=== PATIENT | male | born 1990 | race Caucasian/White ===

== ENCOUNTER → 2020-12-07 16:40 | Outpatient (CLI) | payer OTHER, SELFPAY ==
[2020-12-07] MEDS: COVID-19 VACC #1, MRNA(MOD) 100 MCG/0.5 ML VIAL IM (16:46)
== END ==
PROVIDERS: Visit Provider Internal Medicine
DX: Z23 Encounter for immunization (principal)
CPT/HCPCS: 0011A; 91301

== ENCOUNTER → 2021-01-05 16:18 | Outpatient (CLI) | payer OTHER, SELFPAY ==
[2021-01-05] MEDS: COVID-19 VACC #2, MRNA(MOD) 100 MCG/0.5 ML VIAL IM (16:25)
== END ==
PROVIDERS: Visit Provider Internal Medicine
DX: Z23 Encounter for immunization (principal)
CPT/HCPCS: 0012A; 91301

== ENCOUNTER → 2021-05-16 11:17 | Outpatient (CLI) | payer OTHER, SELFPAY ==
[2021-05-16 14:54] LABS: COVID19 -Nasal RAPID Negative (Negative)
== END ==
PROVIDERS: Referring Provider Physician Assistant; Visit Provider Physician Assistant
DX: Z20.822 Contact with and (suspected) exposure to COVID-19 (principal); J02.9 Acute pharyngitis, unspecified
CPT/HCPCS: 87635

== ENCOUNTER → 2021-10-06 10:55 | Outpatient (CLI) | payer OTHER, SELFPAY ==
[2021-10-06 11:34] LABS: COVID19 -Nasal RAPID POSITIVE (Negative)
== END ==
PROVIDERS: Referring Provider Physician Assistant; Visit Provider Physician Assistant
DX: U07.1 COVID-19 (principal); Z20.822 Contact with and (suspected) exposure to COVID-19
CPT/HCPCS: 87635

== ENCOUNTER 2023-04-07 13:05 | Emergency (ER) | payer OTHER, SELFPAY ==
[2023-04-07 13:10] VITALS: BP 127/68; PULSE 65; RESP 16; TEMP 36.9; O2SAT 99; BMI 26.2
[2023-04-07 15:57] VITALS: BP 114/73; PULSE 62; RESP 18; O2SAT 99
--- NOTE | 2023-04-07 16:00 | PC.NURSE ---
Pt unsure of when last tetanus vaccine was.
[2023-04-07] MEDS: TET,DIPH,PERTUSS(ACELL),VAC/PF 0.5 ML SYRINGE IM (16:08)
--- NOTE | 2023-04-07 17:07 | ED_ITS ---
HPI - Wound/Laceration General Chief Complaint: Wound/Laceration Stated Complaint: Hand inj Time Seen by Provider: 04/07/23 16:20 Source: patient Mode of arrival: Ambulatory History of Present Illness HPI narrative: Patient 33-year-old male who presents with left thumb laceration. He was at work cutting when he sliced his thumb. Wheezing is now controlled his tetanus has been up-to-date he is no numbness or tingling. Related Data Home Medications Medication Instructions Recorded Confirmed Lexapro PO 10/06/21 10/06/21 Allergies Allergy/AdvReac Type Severity Reaction Status Date / Time No Known Drug Allergies Allergy Unverified 10/06/21 10:58 Review of Systems Review of Systems ROS Unobtainable: All systems reviewed & are unremarkable except as noted in HPI and below Patient History Social History Smoking Status: Current some day smoker Smoking Status: Current some day smoker tobacco type: cigarettes alcohol intake frequency: 0-2 drinks per day Substance Use Type: does not use Exam Initial Vital Signs Initial Vital Signs: Vital Signs Temperature 98.5 F 04/07/23 13:10 Pulse Rate 65 04/07/23 13:10 Respiratory Rate 16 04/07/23 13:10 Blood Pressure 127/68 04/07/23 13:10 Pulse Oximetry 99 04/07/23 13:10 Oxygen Delivery Method Room Air 04/07/23 13:10 GENERAL: Well-appearing 33-year-old male CARDIOVASCULAR: peripheral pulses in tact, cap refill <2 sec RESPIRATORY: No respiratory distress, speaks in full sentences without difficulty EXTREMITIES: Normal range of motion, no clubbing or edema. Neurovascularly intact NEUROLOGICAL: Cranial nerves II through XII grossly intact. Normal gait and speech. SKIN: Left thumb flap like laceration bleeding controlled neurovascularly intact. Band-Aid placed Course Orders Ordered: Discontinued Medications Diphtheria/Tetanus/Acell Pertussis (Tet,Diph,Pertuss(Acell),Vac/Pf 0.5 Ml Syringe) 0.5 ml IM .ONCE ONE Stop: 04/07/23 16:02 Last Admin: 04/07/23 16:08 Dose: 0.5 ml Documented By: SB Vital Signs Vital signs: Vital Signs - 8 hr 04/07/23 13:10 04/07/23 15:57 Temperature 98.5 F Pulse Rate 65 62 Respiratory Rate 16 18 Blood Pressure 127/68 114/73 Pulse Oximetry 99 99 Oxygen Delivery Method Room Air Room Air MDM - Wound/Laceration MDM Narrative Medical decision making narrative: Healthy male with simple laceration to left thumb. No sutures required. Band- Aid placed by myself. Tetanus is up-to-date. Discharge Plan Departure Patient Disposition: Home Clinical Impression: Laceration Instructions: DI for Minor Laceration Activity Restrictions/Additional Instructions: *You have been diagnosed with left thumb laceration *What to do: At this time keep covered use antibiotic ointment as needed keep clean with soap and water *Continue to take medications as directed *Follow up with your primary care provider in 2-3 days or call [phone] Follow-up with [facility] *Return to ER if you should have redness swelling pain or any new, worsening or concerning symptoms Prescriptions: No Action Lexapro 5 mg PO Referrals: Miscellaneous,[facility] [Primary Care Provider] - Stand Alone Forms: Patient Portal/API
[2023-04-07 17:21] VITALS: BP 117/88; PULSE 67; RESP 20; O2SAT 95
== END 2023-04-07 17:25 | disposition home or self-care (01) ==
PROVIDERS: Emergency Provider Emergency Medicine
DX: S61.012A Laceration without foreign body of left thumb without damage to nail, initial encounter (principal); W45.8XXA Other foreign body or object entering through skin, initial encounter; Y99.0 Civilian activity done for income or pay; Z23 Encounter for immunization
CPT/HCPCS: 90471; 99283; 90715

== ENCOUNTER → 2025-06-05 10:31 | Outpatient (CLI) | payer OTHER, SELFPAY ==
[2025-06-05 10:54] LABS: Add Manual Diff / Slide Review NO; Hematocrit 43.5 % (41-53); Hemoglobin 15.3 g/dL (13.5-17.5); Lymphocytes Absolute Auto 1400 /uL (1100-4500); Mean Corpuscular HGB Conc 35.1 % (30-36); Mean Corpuscular Hemoglobin 31.6 PG (26-34); Mean Corpuscular Volume 90.0 fL (80-100); Platelet Count 270 X10^3/uL (150-400)
[2025-06-05 11:38] LABS: Blood Urea Nitrogen 12 mg/dL (9-20); Calcium 9.9 mg/dL (8.4-10.2); Carbon Dioxide 29 mmol/L (22-32); Chloride 102 mmol/L (98-107); Cholesterol 178 mg/dL (140-199); Estimated Glomerular Filt Rate > 60 mL/min (>60); Glucose 99 mg/dL (70-99); HDL Cholesterol 40 mg/dL (40-60); HEMOLYSIS < 15 (0-50); Potassium 4.9 mmol/L (3.4-5.1); Sodium 140 mmol/L (137-145); Triglycerides 74 mg/dL (35-150)
== END ==
PROVIDERS: PCP Family Medicine; Referring Provider Family Medicine; Visit Provider Family Medicine
DX: R63.5 Abnormal weight gain (principal); Z68.27 Body mass index [BMI] 27.0-27.9, adult
CPT/HCPCS: 36415; 80048; 80061; 85025